=== PATIENT | female | born 1955 | race Caucasian/White ===

== ENCOUNTER 2016-10-29 07:15 | Day surgery (SDC) | payer OTHER ==
[~2016-10-29] VITALS: Ht 175.3 cm; Wt 129.7 kg
[~2016-10-29 07:15] MED LIST: 0.9% Sodium Chloride 1,000 ML IV SCH; Sodium Chloride LOK Flush 10 mL Syringe IV PRN; ZES20 PO; fentaNYL-PF 50 mCg/mL 2 mL Inj IVPUSH PRN
[2016-10-29 08:02] VITALS: BP 130/84; PULSE 79; RESP 16; O2SAT 99
[2016-10-29] MEDS ORDERED: LISI1TAB7 PO (08:02)
[2016-10-29 09:39] VITALS: BP 124/71; PULSE 77; RESP 14; O2SAT 100
[2016-10-29 09:49] VITALS: BP_SYST 113; BP_SYST 119; BP_DIAS 68; PULSE 62; PULSE 66; RESP 14; O2SAT 98; O2SAT 99
[2016-10-29 09:59] VITALS: BP 126/68; PULSE 60; RESP 12; O2SAT 98
[2016-10-29 10:09] VITALS: BP 115/69; PULSE 63; RESP 14; O2SAT 98
--- NOTE | 2016-10-30 06:36 | ENDO ---
[address] [address] ENDOSCOPY PROCEDURE PATIENT: RICHARD DICKINSON : 1955 MR#: [id number] ADMIT: 10/29/2016 JOB ID: [id number] DATE OF SERVICE: 10/29/2016 PROCEDURE: Colonoscopy. INDICATIONS: Screening. ASA CLASSIFICATION: II MALLAMPATI SCORE: 2 MEDICATIONS: Versed 2 mg, fentanyl 100 mcg. INSTRUMENT USED: PCF-H180AL. PREP QUALITY: Fair. PROCEDURE DETAILS: After informed consent was obtained, the patient was brought into the GI suite where she was placed on oxygen via nasal cannula and monitored with continuous pulse oximeter, telemetry, and blood pressure monitoring. A time-out was performed. Then, she was placed in a left lateral decubitus position and medications were administered for sedation. A digital rectal exam was performed which was unremarkable. The colonoscope was then inserted into the rectum and advanced under direct visualization to the cecum, which was identified by the presence of the ileocecal valve and appendiceal orifice. Once the cecum was reached, the colonoscope was withdrawn back into the rectum as the mucosa and lumen were examined. In the rectum, retroflexion was performed. Following retroflexion, remaining air in the rectum was suctioned, and procedure was completed. The procedure was moderately difficult, as the patient had a very tortuous colon. It required navigation with abdominal pressure in multiple locations, as well as a position change. Once the cecum was reached, the colonoscope was withdrawn back to the rectum as the mucosa and lumen were examined. In the rectum, retroflexion was performed. Following retroflexion, remaining air in the rectum was suctioned and procedure was completed. FINDINGS: 1. A diminutive polyp was seen in the ascending colon that was removed with cold biopsy forceps. 2. In the distal rectum, there was an approximately 4 mm sessile polyp that was removed with a cold snare. 3. Scattered diverticula were seen throughout the left side of the colon. 4. Small internal hemorrhoids. IMPRESSION: 1. Ascending colon polyp. 2. Sigmoid polyp. 3. Left-sided diverticulosis. 4. Small internal hemorrhoids. RECOMMENDATIONS: 1. Fiber-rich diet. 2. Repeat colonoscopy pending polyp pathology results. COMPLICATIONS: None. ESTIMATED BLOOD LOSS: Less than 5 mL.
--- NOTE | 2016-11-01 10:33 | PATH ---
SURGICAL PATHOLOGY Attending Physician:Luis A Alva CASE STATUS: Signed Out PATIENT NAME: RICHARD DICKINSON PID: [id number] : 1955 DATE COLLECTED:10/29/2016 16:07 SPECIMEN: 1: Colon, Biopsy 2: Colon, Biopsy CLINICAL HISTORY: 1. ASCENDING POLYP 2. 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 2.SIGMOID COLON POLYP: HYPERPLASTIC POLYP. ICD10 CODE D12.2 GROSS DESCRIPTION: The specimen is received in two formalin filled containers labeled with the patient's name. 1). The specimen is sublabeled "ascending polyp" and consists of 2 portions of tissue which aggregate to 0.3 x 0.2 x 0.2 CM. The specimen is entirely submitted in cassette 1A. 2). The specimen is sublabeled "sigmoid polyp" and consists of a 0.5 x 0.3 x 0.3 CM portion of tissue which is entirely submitted in cassette 2A. 10/29/2016 DAC MICRO DESCRIPTION: See diagnosis. ICD-9 CODES: CPT CODES: 1: 11077 2: 01758 Electronically Signed Out Pato Cervantes MD [facility] [address] [place] [address] Technical component performed at [facility], [facility] [address], [place], [address]
== END 2016-10-29 23:59 | disposition home or self-care (01) ==
LOC: END 07:15
PROVIDERS: ATTEND Internal Medicine Gastroenterology
DX: Z12.11 Encounter for screening for malignant neoplasm of colon (principal); D12.2 Benign neoplasm of ascending colon; K63.5 Polyp of colon; K57.30 Diverticulosis of large intestine without perforation or abscess without bleeding; K64.8 Other hemorrhoids; Z83.71 Family history of colonic polyps; I10 Essential (primary) hypertension; L40.9 Psoriasis, unspecified; I34.0 Nonrheumatic mitral (valve) insufficiency
CPT/HCPCS: 45380; 45385; 99153; G0500; J7030